=== PATIENT | male | born 1995 | race Native Hawaiian/Other Pacific Islander ===

== ENCOUNTER 2017-04-07 13:42 | Emergency (ER) | payer OTHER ==
[2017-04-07 13:52] VITALS: BP 153/87; PULSE 96; RESP 16; TEMP 97.6; O2SAT 98
[2017-04-07] MEDS ORDERED: Fluorescein 1 mg Ophthalmic Strip ONE (14:09)
--- NOTE | 2017-04-07 14:09 | ED PDOC ---
HPI: Eye Injury/Pain Time Seen by Provider: 04/07/17 13:49 Chief Complaint (Nursing): Eye Problem Chief Complaint (Provider): Abrasion to the eye History Per: Patient History/Exam Limitations: no limitations Onset/Duration Of Symptoms: Hrs (1 hours ago) Current Symptoms Are (Timing): Still Present Additional Complaint(s): 22 y/o male presents to the ED after falling and hitting his left eye on the corner of a cabinet, onset of 1 hour ago. Patient denies of experiencing any loc , CHANGES IN VISION, HEADACHE, DIZZINESS, nausea, or vomiting. Past Medical History Reviewed: Historical Data, Nursing Documentation, Vital Signs Vital Signs: Last Vital Signs Temp 97.6 F 04/07/17 13:48 Pulse 96 H 04/07/17 13:48 Resp 16 04/07/17 13:48 BP 153/87 H 04/07/17 13:48 Pulse Ox 98 04/07/17 13:48 - Medical History PMH: No Chronic Diseases - Surgical History Surgical History: No Surg Hx - Family History Family History: States: Unknown Family Hx - Social History Current smoker - smoking cessation education provided: No Alcohol: None Drugs: Denies - Home Medications Home Medications: Ambulatory Orders Medication Instructions Recorded Erythromycin 0.5% [Erythromycin 3.5 gm OP BID #1 tube 04/07/17 0.5% Oint] - Allergies Allergies/Adverse Reactions: Allergies Allergy/AdvReac Type Severity Reaction Status Date / Time No Known Allergies Allergy Verified 04/07/17 13:47 Review of Systems ROS Statement: Except As Marked, All Systems Reviewed And Found Negative Constitutional: Negative for: Fever Eyes: Positive for: Pain, Redness. Negative for: Vision Change Gastrointestinal: Negative for: Nausea, Vomiting Neurological: Negative for: Other (syncope) Physical Exam - Reviewed Nursing Documentation Reviewed: Yes Vital Signs Reviewed: Yes - Physical Exam Appears: Positive for: Non-toxic, No Acute Distress Head Exam: Positive for: ATRAUMATIC Skin: Positive for: Normal Color, Warm Eye Exam: Positive for: EOMI, PERRL, Other (superficial abrasion to left lateral cantus; subconjunctival hemorrhage) Cardiovascular/Chest: Positive for: Regular Rate, Rhythm. Negative for: Murmur Respiratory: Positive for: Normal Breath Sounds. Negative for: Respiratory Distress Neurologic/Psych: Positive for: Alert, Oriented. Negative for: Motor/Sensory Deficits - ECG O2 Sat by Pulse Oximetry: 98 (RA) Pulse Ox Interpretation: Normal Medical Decision Making Medical Decision Making: Time: --14:09 Impression: --22 y/o male with a corneal abrasion, subconjunctival hemorrhage Plan: --fluorescein stain (+) ptake on exam Reassess -- Scribe Attestation: Documented by Jaime Guzmán acting as a scribe for PA. Elsy Disposition - Clinical Impression Clinical Impression: Subconjunctival hemorrhage, Corneal abrasion - Patient ED Disposition Is Patient to be Admitted: No - Disposition Disposition: Routine/Home Disposition Time: 14:23 Condition: STABLE Prescriptions: Erythromycin 0.5% [Erythromycin 0.5% Oint] 3.5 gm OP BID #1 tube Instructions: Subconjunctival Hemorrhage (ED) Forms: [facility] ([place]ian)
[2017-04-07] MEDS ORDERED: Erythromycin 0.5% Ophth Oint 1 APPLIC/3.5 G OU ONE (14:18)
== END 2017-04-07 14:46 | disposition home or self-care (01) ==
LOC: H.ER 13:42
DX: H11.30 Conjunctival hemorrhage, unspecified eye (principal)